=== PATIENT | female | born 1950 | race Caucasian/White ===

== ENCOUNTER 2019-03-03 06:20 | Day surgery (SDC) | payer MEDICARE, OTHER ==
--- NOTE | 2019-02-23 07:36 | HP ---
HISTORY AND PHYSICAL: DATE OF ADMISSION/SURGERY: 03/03/19 DATE OF OFFICE VISIT: 02/19/19 ATTENDING SURGEON: Dr. Lisa Meier.* (DICTATED BY ELBA GUIDO) PROCEDURE: Left thumb carpometacarpal arthroplasty and left wrist carpal tunnel release. CHIEF COMPLAINT: Left hand pain. HISTORY OF PRESENT ILLNESS: Radha is a 68-year-old female presenting today for her preop H and P. She has left thumb CMC arthritis as well as left wrist carpal tunnel syndrome. At this point, she has failed conservative treatment and would like to proceed with surgery. PAST MEDICAL HISTORY: Hypothyroidism, GERD, breast cancer that is in remission. PAST SURGICAL HISTORY: Tonsillectomy, hysterectomy, bilateral oophorectomy, left ACDF, left shoulder open decompression, bilateral eye lens implants, right shoulder open decompression, cholecystectomy, left knee partial meniscectomy, and right breast lumpectomy. MEDICATIONS: 1. Synthroid 25 mcg 1 tab p.o. daily. 2. Calcium plus D 1 tab p.o. daily. 3. Lansoprazole 30 mg 1 p.o. daily. 4. Probiotic 1 p.o. daily. ALLERGIES: PERCOCET, SUDAFED, DEMEROL, SHELLFISH-DERIVED PRODUCTS, IODINE, AUGMENTIN, LEVAQUIN, NOVOCAIN, VANCOMYCIN, LATEX, LEVSIN, CODEINE, CT DYE, LEVOTHYROXINE. FAMILY HISTORY: Positive for diabetes and cancer. SOCIAL HISTORY: She is a retired high school physical education teacher. She lives at home with her daughter. She denies any tobacco, recreational drug use, or alcohol use. REVIEW OF SYSTEMS: General: Negative for fevers, chills, night sweats, unexplained weight loss or gain. No known anesthesia problems. HEENT: Negative for headache, lightheadedness, syncopal episodes, or visual changes. Integumentary: Negative for abrasions, lesions, or open wounds. Cardiothoracic : Negative for hypertension, chest pain, palpitations, or edema. Respiratory: Negative for shortness of breath with exertion, chronic cough, or wheezing. GI : Positive for GERD symptoms. Negative for nausea, vomiting, diarrhea, constipation. : Negative for nocturia, urinary frequency, urgency, history of UTIs, or kidney problems. Musculoskeletal: Positive for left thumb pain and left hand numbness and tingling. Negative for chronic or intermittent back pain. No history of fractures. Neurologic: Negative for paresthesias, numbness, history of seizure, stroke, or poor balance. Psychiatric: Negative for anxiety, depression. Endocrine: Positive for hypothyroidism. Negative for diabetes. Hematologic: Negative for easy bruising, anemia, bleeding disorders, or history of DVT or PE. ID: Negative for history of MRSA infection, hep C, or HIV. PHYSICAL EXAMINATION GENERAL: Well-developed, well-nourished 68-year-old female, in no acute distress, appropriate mood and affect. VITAL SIGNS: Height 63 inches, weight 164 pounds. Pulse 80, BP 138/88, respirations 15. Pain level 4. O2 sat 97% and BMI 29. HEENT: Normocephalic, atraumatic. PERRLA. Extraocular movements intact. Throat is clear. NECK: Supple. No palpable lymph nodes. PULMONARY: Lungs are clear to auscultation bilaterally. No wheezes, rales, or rhonchi. CARDIO: Regular rate and rhythm. S1 and S2 normal. No murmurs, rubs, or gallops. No edema. ABDOMEN: Positive bowel sounds. Soft and nontender. NEUROLOGIC: A and O x3. Cranial nerves II through XII intact. Sensation is intact to light touch. MUSCULOSKELETAL: Left Upper Extremity: Skin is intact with no abrasions or open wounds. There is no visible swelling. She has significant tenderness to palpation at the base of the thumb, the carpometacarpal joint with some tenderness in the thenar eminence. There is no visible thenar wasting, but there is weakness with thumb abduction on the left when compared to the contralateral side. She has good motion in her thumb and fingers, but increased pain with thumb abduction, good strength with finger abduction. She has a mildly positive median nerve compression test. Negative Tinel's at the wrist and at the elbow. Phalen's test increases pain at the wrist. Negative Vincent's. Positive grind test on the left. Neurovascular function is intact. Sensation is intact to light touch. DIAGNOSTIC STUDIES: X-rays of the left thumb were reviewed and showed degenerative changes at the left thumb carpometacarpal joint with loss of joint space and osteophytes visible and previous EMGs also showed moderate carpal tunnel syndrome on the left. IMPRESSION: 1. Left thumb carpometacarpal arthritis. 2. Left carpal tunnel syndrome. PLAN: The patient is scheduled to undergo left thumb carpometacarpal arthroplasty and left wrist carpal tunnel release on 03/03/[address] Lisa Meier. Dr. Meier went over the procedure as well as the risks and benefits with the patient and she elects to proceed. She will return to the office 10 days postop for followup and suture removal. A prescription for [place] will be prescribed to the patient's pharmacy for postoperative pain management since she has had issues with other pain medications in the past. An I-STOP will be performed before that is prescribed. ELBA GUIDO [id number]/[facility] #: [id number] MTDSunitha
[~2019-03-03 06:20] MED LIST: Buffered Lidocaine 1% SYRIN* 1 ML/SYRINGE INTRADERM ONE; Dexamethasone IV* 4 MG/ML 1 ML (4 MG) IV SLOW PU ONE; Dexamethasone IV* 4 MG/ML 1 ML (4 MG) ONE; Famotidine IV* 10 MG/ML 2 ML (20 mg) IV ONE; Famotidine IV* 10 MG/ML 2 ML (20 mg) ONE; Lactated Ringers 1000 ML Bag* 1,000 ML IV SCH
[2019-03-03] MEDS ORDERED: Clindamycin 900 MG IVPREMIX(* 900 MG/50 ML SDV IV ONE (07:13)
[2019-03-03] MEDS ORDERED: Bupivacaine 0.5% SDV PF* 30ML VIAL ONE (07:24)
[2019-03-03] MEDS ORDERED: Ondansetron INJ* 2 MG/ML VIAL ONE (07:26)
[2019-03-03] MEDS ORDERED: Midazolam* 1 MG/ML 5 ML VIAL (5 MG) ONE (07:26)
[2019-03-03] MEDS ORDERED: Propofol* 10 MG/ML 20 ML BTL ONE (07:26)
[2019-03-03] MEDS ORDERED: Sodium Bicarbonate 8.4% VIAL* 10 ML VIAL IV ONE (07:30)
[2019-03-03] MEDS ORDERED: Lidocaine 0.5%* 50 ML SDV ONE (07:30)
[2019-03-03] MEDS ORDERED: Lidocaine 2% PF * 5 ML VIAL ONE (07:31)
[2019-03-03] MEDS ORDERED: fentaNYL* 50 MCG/ML 2 ML VIAL (100 MCG VIAL) ONE (08:06)
[2019-03-03] MEDS ORDERED: Naloxone* 0.4 MG/ML 1 ML VIAL IV PRN (08:17)
[2019-03-03 09:07] VITALS: BP 94/83
--- NOTE | 2019-03-03 12:16 | OP ---
DATE OF OPERATION: 03/03/19 - [facility] DATE OF : 46 SURGEON: Lisa Meier M.D. BUSINESS OFFICE REPRESENTATIVE: ELBA Medina. ANESTHESIA: IV regional. PRE-OP DIAGNOSES: Left thumb carpometacarpal arthritis and left carpal tunnel syndrome. POST-OP DIAGNOSES: Left thumb carpometacarpal arthritis and left carpal tunnel syndrome. OPERATIVE PROCEDURE: Left wrist carpal tunnel release and left thumb carpometacarpal arthroplasty. ESTIMATED BLOOD LOSS: Zero. TOURNIQUET TIME: About 45 minutes. INDICATIONS FOR PROCEDURE: Radha is a 68-year-old female, who has pain at the base of her left thumb and numbness and tingling in the median nerve distribution of her left hand. She presents for left carpal tunnel release and CMC arthroplasty of the left thumb. DESCRIPTION OF PROCEDURE: The patient was brought to the operating room, was given an IV regional anesthetic with a tourniquet around her left upper arm. The skin of her left upper extremity was prepped and draped in the usual sterile fashion. A longitudinal incision was made in the palm in line with the ring finger. We dissected through the subcutaneous tissue down to the transverse carpal ligament. The ligament was divided sharply with a knife and then more proximally with the scissors. The nerve was dissected free from the surrounding tissue and there was an area of moderate compression at the mid portion of the ligament. The wound was irrigated and the skin edges were reapproximated with 4-0 nylon suture. Next, an S- shaped incision was made centered at the thumb CMC joint. We dissected bluntly through the subcutaneous tissue. Branches of the radial sensory nerve were located and retracted by the neurosurgical physician assistant, Yi Joseph. The APL and EPB tendons were retracted as well. The radial artery was then carefully dissected away from the thumb CMC joint and retracted by the neurosurgical physician assistant. A distally based U- shaped flap was created at the thumb CMC joint capsule and the trapezium was subperiosteally dissected out and removed in its entirety. The wound was irrigated and the joint capsule was secured to the FCR tendon. In the base of the wound, the remainder of the capsule was reapproximated with 4-0 nylon suture. This gave a very good abduction position to the metacarpal and the MP joint was nicely flexed at about 30 degrees. The skin edges were reapproximated with 4-0 nylon suture. The wound was dressed with Xeroform, 4x4 , Webril, and a thumb spica splint. The patient tolerated the procedure well and was brought to the recovery room in good condition. [id number]/[facility] #: [id number] [facility]
== END 2019-03-03 09:25 | disposition home or self-care (01) ==
LOC: OREAST 06:20
PROVIDERS: ATTEND Orthopaedic Surgery
DX: M18.12 Unilateral primary osteoarthritis of first carpometacarpal joint, left hand (principal); G56.02 Carpal tunnel syndrome, left upper limb; E03.9 Hypothyroidism, unspecified; K21.9 Gastro-esophageal reflux disease without esophagitis; Z85.3 Personal history of malignant neoplasm of breast
CPT/HCPCS: 88304; 88311; J1100; J2250; J2405; J2704; J3010; J3490